=== PATIENT | female | born 1945 | race Caucasian/White ===

== ENCOUNTER → 2020-05-18 10:50 | Outpatient (CLI) | payer MEDICARE, OTHER, SELFPAY ==
--- NOTE | 2020-05-18 10:56 | DI.MRI.S_ITS ---
PROCEDURE: MR THORACIC SPINE WO CON INDICATIONS: BACK PAIN TECHNIQUE: Noncontrast sagittal T1 spine echo and T2 fast spin echo, sagittal STIR, axial T1 and T2 fast spin echo through the thoracic spine. COMPARISON: [facility], RG, XR T-SPINE 4-6V, 05/03/2020, 11:32. FINDINGS: Image quality: Excellent. Alignment and Curvature: There is 23.1 degree dextroscoliotic bony alignment. Centered at the low thoracic spine. Bone Marrow: Marrow is of normal overall signal. No acute vertebral body compression fractures. No sign of trauma, or inflammation involving the vertebral body marrow space. Note is made of mid and lower thoracic mild degenerative disc height reduction and disc desiccation. Spinal Cord: Visualized spinal cord is normal in size and signal. Low cervical moderate spinal stenosis is present, without disc herniation. Paraspinous Soft Tissues: No paravertebral masses. Miscellaneous: On axial images, central canal and foramina appear widely patent at all scanned levels. IMPRESSION: 23.1 degree low thoracic spine dextroscoliosis. Degenerative disc disease is mild along the thoracic spine. No significant thoracic spinal stenosis is found. Note is made of low cervical spine moderate chronic appearing spinal stenosis in the C5-6 through C6-7 levels seen at the upper margin of the imaging field of view. No disc herniation or evidence of compression fracture found. Dictated by: Hermilo Sanchez M.D. on 05/20/2020 at 10:09 Approved by: Hermilo Sanchez M.D. on 05/20/2020 at 10:13
== END ==
PROVIDERS: PCP Physician Assistant Medical; Referring Provider Physician Assistant Medical; Visit Provider Physician Assistant Medical
DX: M54.6 Pain in thoracic spine (principal); M41.24 Other idiopathic scoliosis, thoracic region
CPT/HCPCS: 72146

== ENCOUNTER → 2020-08-13 08:27 | Outpatient (CLI) | payer MEDICARE, OTHER, SELFPAY ==
[2020-08-13 15:11] LABS: COVID19 -Nasal RAPID Negative (Negative)
== END ==
PROVIDERS: PCP Physician Assistant Medical; Visit Provider Physical Medicine & Rehabilitation
DX: Z20.822 Contact with and (suspected) exposure to COVID-19 (principal)
CPT/HCPCS: 87635; C9803

== ENCOUNTER 2020-08-15 09:40 | Outpatient (CLI) | payer MEDICARE, OTHER, SELFPAY ==
[2020-08-15] VITALS (9 sets, daily range): BP systolic 122–150; BP diastolic 58–82; PULSE 81–90; RESP 10–25; TEMP 36.9; O2SAT 92–99
--- NOTE | 2020-08-15 09:43 | DI.RAD.S_ITS ---
PROCEDURE: PAIN C/T INTERLAMINAR INJECT INDICATIONS: SPINAL STENOSIS COMPARISON: None. FINDINGS: Fluoroscopic spot filming was performed to verify placement of spinal needles at the T8-9 dorsal translaminar level(s), as labeled on the films. Appropriate location(s) of the needle tip(s) was confirmed by injection of iodinated contrast. IMPRESSION: Successful needle tip localization for T8-9 access for dorsal low thoracic spine epidural steroid injection. Dictated by: Hermilo Sanchez M.D. on 08/15/2020 at 11:37 Approved by: Hermilo Sanchez M.D. on 08/15/2020 at 11:37
[2020-08-15] MEDS: fentaNYL 100 MCG/2 ML INJ 50 MCG IV (10:43)
[2020-08-15] MEDS: MIDAZOLAM 5 MG/5 ML VIAL IV (10:43)
[2020-08-15] MEDS: IOPAMIDOL 15 ML VIAL 3 ML INJ (10:45)
[2020-08-15] MEDS: DEXAMETHASONE 10 MG/ML VIAL 30 MG INJ (10:46)
[2020-08-15] MEDS: BUPIVACAINE 0.25% (PF) VIAL 2 ML INJ (10:46)
--- NOTE | 2020-08-15 11:01 | PM.PROC.IR.1 ---
Date/Time/Diagnoses Date of procedure: 08/15/20 Time of procedure: 11:01 Pre-procedure diagnosis: Thoracic stenosis with HNP Post-procedure diagnosis: same Procedure Notes Procedure: Fluoroscopic guided, contrast controlled T8-9 translaminar epidural steroid injection with conscious sedation. Indications: Della is referred by ANSELMO Swanson for treatment of thoracic DDD/DJD with radiculopathy Physician: Gasper Boles Total Fluoroscopy time (seconds): 20 Total sedation minutes: 13 Complications: none Procedure in detail & Post-procedure care: DESCRIPTION OF PROCEDURE Fluoroscopic guided, contrast controlled T8-9 translaminar epidural steroid injection with conscious sedation. Following review of allergy review potential side effects and complications, including, but not necessarily limited to, infection, allergic reaction, local tissue breakdown, temporary as well as permanent nerve injury, stroke, paralysis and possible , the patient indicated that they understood and agreed to proceed. An informed consent document was signed by the patient, witnessed by the nurse, and placed in the patient's chart. Additionally other treatment options including modalities, medications and physical therapy were reviewed with the patient. After review of previous anaesthesic history and IV conscious sedation the patient was deemed safe to proceed with today's procedure with IV conscious sedation as ASA class II designation. Safety time-out was performed to confirm patient ID, procedure to be performed and site of procedure. IV sedation was accomplished with a combination of 2mg of Versed and 50mcg of Fentanyl administered by the RN after DO order, titrated to patient comfort during the course of the procedure while the patient remained responsive to all verbal commands In the prone position, following sterile prep and drape of the thoracic region the T8-9 translaminar space was identified fluoroscopically. The skin was anesthetized via 25 gauge 1.5inch needle with 1% lidocaine solution. At this point a 22gauge epidural needle was atraumatically introduced and advanced under fluoroscopic guidance into the region of the T8-9 translaminar space depth was confirmed on lateral view. Radiographic data, including multiple fluoroscopic views of the thoracic spine, reveals spinal needle at the T8-9 translaminar space. Lateral views then showed the placement of the needle in the epidural space. Subsequent view show contrast material flowing superiorly and inferiorly in the epidural space. No vascular or intrathecal uptake is observed. At this point using loss of resistance technique with saline and the epidural space was entered. This was confirmed followed negative aspiration and injection of approximately 1.5cc of Isovue 200 showed excellent epidural flow without vascular or intrathecal uptake. At this point, 1 cc of 1% lidocaine solution was admitted as a test dose and the patient was observed for an appropriate period of time without signs or symptoms of complications, including abdominal pain, shortness of breath, bilateral upper and lower extremity weakness, nausea and vomiting, prior to steroid injection. Subsequently, 2cc or 20mg of dexamethasone was then injected without incident. The patient tolerated the procedure well without signs of complications and subsequently was transferred to the recovery room for further monitoring. The patient was then transferred to the recovery area with their observed for an appropriate time after the injection. Patient reported a VAS score of 7 prior to the procedure and post-procedure VAS of 2.
== END 2020-08-15 11:20 | disposition home or self-care (01) ==
LOC: RAD 09:42
PROVIDERS: PCP Physician Assistant Medical; Referring Provider Physical Medicine & Rehabilitation; Visit Provider Physical Medicine & Rehabilitation
DX: M48.04 Spinal stenosis, thoracic region (principal); M51.14 Intervertebral disc disorders with radiculopathy, thoracic region
CPT/HCPCS: 62321; 99152; J1100; J2250; J3010

== ENCOUNTER → 2024-10-13 13:59 | Outpatient (CLI) | payer MEDICARE, OTHER, SELFPAY ==
--- NOTE | 2024-10-13 14:03 | DI.RAD.S_ITS ---
PROCEDURE: XR THORACIC SPINE 3V INDICATIONS: t-spine pain TECHNIQUE: 3 views of the thoracic spine were acquired. COMPARISON: [facility], XR THORACIC SPINE 3 VIEWS, 04/29/2018, 12:18. FINDINGS: Bones: No fractures or dislocations. No suspicious bony lesions. 12 pairs of ribs are noted, and appear intact where visualized. Mild dextroscoliosis centered at the lower thoracic level. Moderate multilevel disc height loss with endplate sclerosis and spurring. Bones are osteopenic. Soft tissues: No paravertebral stripe thickening. IMPRESSION: Moderate multilevel disc degeneration similar to prior exam. Dictated by: Hung Aviles [facility] Interpreted: Sourav Arriaga MD on 10/13/2024 at 14:42 Transcribed by: JEB on 10/13/2024 at 14:44 Approved by: Sourav Arriaga M.D. on 10/19/2024 at 8:03
== END ==
PROVIDERS: PCP Physician Assistant Medical; Referring Provider Physician Assistant Medical; Visit Provider Physical Medicine & Rehabilitation
DX: M51.34 Other intervertebral disc degeneration, thoracic region (principal)
CPT/HCPCS: 72072